=== PATIENT | male | born 1950 | race Caucasian/White ===

== ENCOUNTER 2019-08-31 08:38 | Outpatient (CLI) | payer MEDICARE, MEDICAID, SELFPAY ==
[2019-08-31 09:34] LABS: Alanine Aminotransferase 27 U/L (4-50); Albumin Level 3.9 g/dL (3.5-5.1); Alkaline Phosphatase 81 U/L (38-126); Aspartate Amino Transferase 27 U/L (17-59); Bilirubin,Total 0.3 mg/dL (0.2-1.3); Blood Urea Nitrogen 54 mg/dL (9-20); Carbon Dioxide 22 mmol/L (22-30); Chloride 108 mmol/L (98-107); Cholesterol 177 mg/dL (0-200); Estimated Glomerular Filt Rate 40; Glucose 144 mg/dL (75-110); HDL Direct 54 mg/dL; Potassium 4.4 mmol/L (3.4-5.0); Sodium 141 mmol/L (137-145); Triglycerides 128 mg/dL (<150)
[2019-08-31 09:46] LABS: LDL Cholesterol Direct 88 mg/dL
[2019-08-31 10:05] LABS: Prostate Specific Antigen 0.3 ng/mL (< OR = 4.0)
[2019-08-31 10:43] LABS: Hemoglobin A1C 8.3 % (<5.7)
[2019-08-31 10:45] LABS: Creatinine Urine 142.3 mg/dL
[2019-08-31 10:49] LABS: MALB Creatinine Ratio 11.3 mg/g (0-30); Microalbumin Urine Random 16.1 mg/L (0-16.7)
== END 2019-08-31 08:39 | disposition home or self-care (01) ==
PROVIDERS: PCP Nurse Practitioner Adult Health; Visit Provider Nurse Practitioner Adult Health
DX: E11.9 Type 2 diabetes mellitus without complications (principal); E78.5 Hyperlipidemia, unspecified; E03.9 Hypothyroidism, unspecified; R35.1 Nocturia
CPT/HCPCS: 36415; 80048; 80061; 80076; 82043; 83036; 84153; 84443

== ENCOUNTER 2019-12-02 08:42 | Emergency (ER) | payer MEDICARE, MEDICAID, SELFPAY ==
--- NOTE | ~2019-12-02 | XR_ITS ---
XR chest 1V portable DATE: 12/02/2019 09:40 INDICATION: Cough TECHNIQUE: Portable AP chest on 12/02/2019 at 0941 hours COMPARISON: 02/14/2019 2 view chest FINDINGS: There is chronic elevation of the right leaf of the diaphragm. No pulmonary infiltrate or consolidation, pleural effusion or pulmonary vascular congestion or pneumo thorax is evident. IMPRESSION: No active disease or significant change since 02/14/2019 Reviewed, dictated and finalized at location [facility].
--- NOTE | ~2019-12-02 | CT_ITS ---
EXAMINATION: CT brain wo con DATE: 12/02/2019 10:28 INDICATION: Confusion. TECHNIQUE: Computed tomography (CT) of the head was performed without intravenous contrast. The mA wa s adjusted according to patient size. Iterative reconstruction technique was employed. Exam dose: 60 5.33 mGy-cm total exam DLP. COMPARISON: 12/13/2018 CT head FINDINGS: No intracranial mass lesion or hemorrhage or cerebrovascular accident is evident. No midlin e shift or mass effect. Bilateral carotid siphon internal carotid artery calcifications. There is nonspecific diminished atte nuation of the cerebral white matter, likely due to chronic small vessel ischemic changes. Mild to moderate cerebral atrophy. No subdural or epidural hematoma. No fracture or bone destruction of the cranial vault. There is soft tissue thickening of the ethmoid air cells. There is minimal mucoperiosteal thickening of the maxillary and sphenoid sinuses. The left mastoid air cells are normally developed and aerated. Status post right mastoidectomy. IMPRESSION: Cerebral atherosclerosis and chronic small vessel ischemic changes of the cerebral white matter No acute intracranial finding . Reviewed, dictated and finalized at [facility]. Reviewed, dictated and finalized at location [facility].
[2019-12-02 08:51] VITALS: BP 133/49; PULSE 51; RESP 20; TEMP 36.2; O2SAT 97
[2019-12-02 09:05] LABS: Glucose Point of Care 253 (65-105)
--- NOTE | 2019-12-02 09:31 | ECG_ITS ---
Measurements Intervals [place] Rate: 45 P: 30 MA: 188 QRS: 26 QRSD: 109 T: 70 QT: 483 QTc: 421 Interpretive Statements SINUS BRADYCARDIA NONSPECIFIC ST & T-WAVE ABNORMALITY- DIFFUSE LEADS BASELINE ARTIFACT- I, II, III, AVR, AVL, AVF, V2 ABNORMAL ECG Electronically Signed On 12-02-2019 9:50:31 CDT by Timmy Salas D.O.
[2019-12-02 09:33] LABS: Basophils Absolute Auto 0.08 K/mm3 (0.00-0.10); Basophils Percent Auto 0.8 % (0.0-1.0); Eosinophils Absolute Auto 0.89 K/mm3 (0.02-0.50); Eosinophils Percent Auto 8.7 % (1.0-6.0); Hematocrit 37.3 % (37.0-46.0); Hemoglobin 11.9 g/dL (12.4-15.3); Immature Granulocyte Absolute 0.05 K/mm3 (0.00-0.00); Immature Granulocyte Percent A 0.5 % (0.0-0.0); Lymphocytes Absolute Auto 1.73 K/mm3 (1.10-4.50); Mean Corpuscular HGB Conc 31.9 g/dL (32.0-36.0); Mean Corpuscular Hemoglobin 29.8 pg (27.0-31.0); Mean Corpuscular Volume 93.5 fL (78.0-102.0); Mean Platelet Volume 11.5 fl (8.7-11.0); Monocytes Absolute Auto 0.74 K/mm3 (0.10-0.90); Monocytes Percent Auto 7.3 % (2.0-11.0); Neutrophils Absolute Auto 6.7 K/mm3 (1.7-7.2); Neutrophils Percent Auto 65.7 % (50.0-70.0); Platelet Count Result 181 K/mm3 (150-420); Red Blood Count 3.99 M/mm3 (4.70-6.10); Red Cell Distribution Width 14.6 % (11.6-14.4); White Blood Count 10.2 K/mm3 (4.8-10.8)
--- NOTE | 2019-12-02 09:34 | ED.GENADULT ---
HPI - General Adult General Chief complaint: Altered Mental Status Stated complaint: Ambulance History of Present Illness HPI narrative: About an hour after taking his usual dose of Lantus 60 this 68 y.o. felt his heart beating fast and felt like he was going to faint, seeing circles in his visual field and feeling week. His glucose was measured at 33; the pre-insulin glucose was 103. After being given candy the glucose was 69; 5 minutes later dropped to 33 per EMS. Given D10 en route to the hospital. For the last month or so he has been experiencing short episodes of chest pressure; he had none today Son states he has been dozing off frequently over the past 2 weeks. He takes [place] 4x/day. There has been no recent change in dose. Pt states he was told he doesn't need his CPAP. Related Data Home Medications Medication Instructions Recorded Confirmed gabapentin 100 mg PO TID 12/02/19 12/02/19 insulin glargine [Lantus U-100 60 unit SUBCUT DAILY 12/02/19 12/02/19 Insulin] levothyroxine 100 mcg PO DAILY 12/02/19 12/02/19 lisinopril 5 mg PO DAILY 12/02/19 12/02/19 metoprolol tartrate 25 mg PO BID 12/02/19 12/02/19 nitroglycerin 0.4 mg SUBLINGUAL PRN PRN 12/02/19 12/02/19 potassium chloride [Klor-Con 10] 10 meq PO DAILY 12/02/19 12/02/19 pravastatin 20 mg PO DAILY 12/02/19 12/02/19 tamsulosin 0.4 mg PO DAILY 12/02/19 12/02/19 umeclidinium-vilanterol [Anoro 1 inh INHALATION DAILY 12/02/19 12/02/19 Ellipta] Allergies Allergy/AdvReac Type Severity Reaction Status Date / Time No Known Allergies Allergy Verified 09/17/19 00:17 Review of Systems Constitutional: Constitutional: Denies chills and Denies fever(s) Eyes: Eyes: Reports no additional eye complaints ENT: Comments: No lightheadedness with standing. Cardiovascular: Cardiovascular: Reports no additional cardiovascular complaints Respiratory: Comments: States chronic SOB; not worse today. Gastrointestinal: Gastrointestinal: Denies abdominal pain, Denies nausea and Denies vomiting Comments: Has had 4 episodes of diarrhea daily for the last week or so. Genitourinary: Genitourinary: Denies dysuria Musculoskeletal: Comments: chronic low back pain attributed to nerve compression. Integumentary/Breasts: Skin/Breast: Denies rash Neurologic: Denies vertigo, Denies focal weakness, Denies numbness and Denies weakness Endocrine: Endocrine: Denies polydipsia and Denies polyuria Hematologic/Lymphatic: Hematologic/Lymphatic: Denies easy bleeding Allergic/Immunologic: Allergic/Immunologic: Denies tongue swelling [facility] Past Medical History Medical History (Updated 12/03/19 @ 02:19 by Trenton Quintanilla MD) Atrial fibrillation BPH (benign prostatic hyperplasia) CHF (congestive heart failure) COPD (chronic obstructive pulmonary disease) Diabetes HTN (hypertension) Hx of colonic polyps Surgical History Surgical History (Updated 12/02/19 @ 16:44 by Sandy Shaffer PA-C) History of major abdominal surgery Patient states this was an experimental surgery for an ulcer Hx of cholecystectomy Hx of colonoscopy with polypectomy Social History Social History (Updated 12/02/19 @ 16:45 by Sandy Shaffer PA-C) Social History: Patient does not smoke. he would like to be a full code. He is retired Smoking status: Never smoker Alcohol intake: never Substance use: never Gender identity (if verbalized by the patient): Male Spiritual care concerns: No Agree to blood products: Yes Exam Narrative: Exam Narrative: Eyes closed. Opens eyes when spoken to. Speech is very slightly slurred and slow. Const: General: no acute distress; No ill appearing Orientation/consciousness: patient oriented x3 HENMT: Head: normal to inspection Face and sinus: no sinus tenderness Mouth: No dry mucous membranes Eyes: Pupils: Equal, round and reactive pupils present Neck: Neck: no lymphadenopathy and no meningeal signs Chest: Chest palpation & ins
[2019-12-02 09:37] LABS: Glucose Point of Care 200 (65-105)
[2019-12-02 09:50] VITALS: PULSE 44
[2019-12-02 09:50] LABS: Alanine Aminotransferase 17 U/L (16-63); Albumin Level 2.8 g/dL (3.4-5.0); Alkaline Phosphatase 70 U/L (46-116); Anion Gap 12.5 mmol/L (7-16); Aspartate Amino Transferase 15 U/L (15-37); Bilirubin,Total 0.3 mg/dL (0.00-1.00); Blood Urea Nitrogen 39 mg/dL (7-18); Calcium 8.3 mg/dL (8.5-10.1); Carbon Dioxide 26 mmol/L (21-32); Chloride 106 mmol/L (98-108); Estimated CRCL calculation 46 ml/min; Estimated Glomerular Filt Rate 32; Glucose 190 mg/dL (70-99); Osmolality Calculated 306 mOsm/kg (285-295); Potassium 3.5 mmol/L (3.5-5.1); Sodium 141 mmol/L (136-145); Total Protein 5.9 g/dL (6.4-8.2)
[2019-12-02 09:51] LABS: Troponin I < 0.02 ng/mL (0.00-0.056)
[2019-12-02 10:02] LABS: Glucose Point of Care 160 (65-105)
[2019-12-02] MEDS: DEXTROSE 5%/0.9% SOD CHL 1,000 ML 250 ML IV CONT (10:13)
[2019-12-02 10:43] LABS: Glucose Point of Care 222 (65-105)
[2019-12-02 10:44] LABS: Magnesium 2.1 mg/dL (1.8-2.4); Thyroid Stimulating Hormone 3.38 uIU/mL (0.36-3.74)
--- NOTE | 2019-12-02 10:47 | PC.NURSE ---
1040 Pt. sleeping, arousable slightly to name, then falls asleep again. Noted BS recheck of 222, report given to Dr. Quintanilla. Awaiting lab results. Monitor continues to show SBrady c HR 44.
--- NOTE | 2019-12-02 11:08 | PC.NURSE ---
Pt. requests transfer to [place]. Call placed to mike Feliciano. and awaiting call back from hospitalist to speak c ANKITA.
--- NOTE | 2019-12-02 11:19 | PC.NURSE ---
Report to JEISON Santiago
[2019-12-02 11:24] VITALS: BP 129/68; PULSE 42; RESP 16; O2SAT 96
--- NOTE | 2019-12-02 11:34 | PC.NURSE ---
Dr. Quintanilla speaking with Dr. Alaniz at [facility]. Dr. Alaniz to accept pt. awaiting room assignment, pt and pts family aware.
[2019-12-02 11:43] LABS: Glucose Point of Care 228 (65-105)
--- NOTE | 2019-12-02 11:45 | PC.NURSE ---
ZACHERY from Dr. Quintanilla to lower rate of d5/ns to 200ml/hr.
--- NOTE | 2019-12-02 11:59 | PC.NURSE ---
Pt reports that he is unable to provide urine sample at this time.
--- NOTE | 2019-12-02 12:28 | PC.NURSE ---
mike Felicianohousehold refrigerator mechanic from [place] called with room assignment. pt to go to room 205B and report is able to be called. Pt and family updated. Face sheet faxed to sarah.
--- NOTE | 2019-12-02 12:40 | PC.NURSE ---
[facility] contacted for transport, no ambulance available.
--- NOTE | 2019-12-02 12:48 | PC.NURSE ---
[facility] contacted for carli.
[2019-12-02 12:54] VITALS: BP 124/71; PULSE 46; RESP 16; O2SAT 96
== END 2019-12-02 13:35 | disposition short-term general hospital (02) ==
PROVIDERS: Emergency Provider Family Medicine
DX: R00.1 Bradycardia, unspecified (principal); R41.82 Altered mental status, unspecified; E11.649 Type 2 diabetes mellitus with hypoglycemia without coma; Z79.4 Long term (current) use of insulin; I48.91 Unspecified atrial fibrillation; I50.9 Heart failure, unspecified; J44.9 Chronic obstructive pulmonary disease, unspecified; I10 Essential (primary) hypertension
CPT/HCPCS: 36415; 70450; 71045; 80053; 82948; 83735; 84443; 84484; 85025; 93005; 96360; 96361; 99283; 99285; J7042

== ENCOUNTER 2019-12-02 16:27 | Observation (INO) | payer MEDICARE, MEDICAID, SELFPAY ==
[2019-12-02 15:12] VITALS: BP 143/62; PULSE 52; RESP 14; TEMP 36.3; O2SAT 98
[2019-12-02 16:00] VITALS: PULSE 50
--- NOTE | 2019-12-02 16:18 | ADMGEN ---
This patient, Raymundo Urbina, was admitted to IMU Room 205-02 at 1425 on 142. Patient/family oriented to hospital policies and general routines including ID bracelet, bed and alarms, visiting hours, pain management, procedures, bathroom and other care routines, personal items, smoking policy, room service/diet, and visiting hours. Valuables list has been completed. Information on how to activate the Rapid Response Team has been discussed. Patient/Family are encouraged to report perceived risks to care and to ask questions if they do not understand what they are told or what they should do.
[2019-12-02 16:20] VITALS: BMI 47.5
--- NOTE | 2019-12-02 16:37 | PM.IMHP ---
H&P: HPI History of Present Illness Chief complaint: BRADYCARDIA,ACUTE MENTAL STATUS CHANGE Narrative: Raymundo Urbina is a 68 year old male who presented emergency room for multiple readings of low blood sugars. Patient states that he woke up this morning and his blood sugar was around 103. He took his 60 units of Lantus and laid down for a nap. He woke up and felt woozy, jittery, and had blurred vision. He rechecked his blood sugar and it was 33. He had some sugary drinks and a candy bar and could not get his blood sugar over 60 so he called the ambulance. Son, at bedside, says that he was confused but conscious the whole time. The patient stated that he felt like his heart was racing when his sugar was low but this improved once his sugar improved. He does mention that he has had chest pressure on and off for about 2 weeks and happens at rest or with activity. He has some occasional shortness of breath with this as well. He said he is not very active and sits and sleeps in a recliner most of the time. He does get up and go to the bathroom when needed. He has no history of falls, dizziness, or passing out. At this time he denies chest pain, shortness of breath, fevers, chills, nausea, vomiting, diarrhea, constipation or diaphoresis. He has no history of heart attacks that he knows of but does have a history of atrial fibrillation. He sees Dr. khan as his site coordinator. He said he has been told at 1 point that his heart rate was too low but does not really remember what happened with that. He usually takes his blood sugar routinely and runs anywhere from 110-200. He does not know his last A1c. He sees bret Crane as his primary care doctor. He has no further complaints today. Review of Systems Review of Systems: All systems reviewed & are unremarkable except as noted in HPI and below PMFSH Past Medical History Medical History (Updated 12/02/19 @ 16:46 by Sandy Shaffer PA-C) Atrial fibrillation BPH (benign prostatic hyperplasia) CHF (congestive heart failure) COPD (chronic obstructive pulmonary disease) Diabetes HTN (hypertension) Hx of colonic polyps Surgical History Surgical History (Updated 12/02/19 @ 16:44 by Sandy Shaffer PA-C) History of major abdominal surgery Patient states this was an experimental surgery for an ulcer Hx of cholecystectomy Hx of colonoscopy with polypectomy Social History Social History (Updated 12/02/19 @ 16:45 by Sandy Shaffer PA-C) Social History: Patient does not smoke. he would like to be a full code. He is retired Smoking status: Never smoker Alcohol intake: never Substance use: never Gender identity (if verbalized by the patient): Male Spiritual care concerns: No Agree to blood products: Yes Meds Home Medications and Allergies Home Medications Medication Instructions Recorded Confirmed Type furosemide 40 mg tablet 40 mg PO DAILY #90 tablet 08/20/19 12/02/19 Rx amiodarone 200 mg tablet 200 mg PO DAILY #90 tablet 09/04/19 12/02/19 Rx rivaroxaban 15 mg tablet 15 mg PO QPM #90 tablet 09/04/19 12/02/19 Rx albuterol sulfate 90 mcg/actuation 2 inhalation INHALATION Q4-6H PRN 09/17/19 12/02/19 Rx aerosol inhaler #18 gm tolnaftate [Antifungal 1 applic TOPICAL TID #108 gm 09/17/19 12/02/19 Rx (tolnaftate)] insulin lispro 100 unit/mL See Rx Instructions .ROUTE 11/28/19 12/02/19 Rx subcutaneous solution .COMPLEX #30 ml insulin syr/ndl U100 half shy 0.3 #300 each 11/28/19 12/02/19 Rx mL 31 gauge x 1/4 insulin syringe-needle U-100 1 mL #100 each 11/28/19 12/02/19 Rx 31 gauge x 15/64 gabapentin 100 mg PO TID 12/02/19 12/02/19 History insulin glargine [Lantus U-100 60 unit SUBCUT DAILY 12/02/19 12/02/19 History Insulin] levothyroxine 100 mcg PO DAILY 12/02/19 12/02/19 History lisinopril 5 mg PO DAILY 12/02/19 12/02/19 History metoprolol tartrate 25 mg PO BID 12/02/19 12/02/19 History nitroglycerin 0.4 mg SUBLINGUAL PRN PRN 12/02/19
[2019-12-02 17:15] LABS: Glucose Point of Care 272 (65-105)
--- NOTE | 2019-12-02 17:18 | PM.CNCAR ---
Assessment and Plan Assessment and plan (1) Morbidly obese: Code(s): E66.01 - Morbid (severe) obesity due to excess calories Status: Acute (2) Bradycardia: Code(s): R00.1 - Bradycardia, unspecified Status: Acute Assessment and Plan: Mild as low as 40 bpm, on Metoprolol and Amiodarone. Stop Metoprolol but continue Amiodarone. (3) HTN (hypertension): Code(s): I10 - Essential (primary) hypertension Status: Acute Assessment and Plan: Stable. Monitor. (4) COPD (chronic obstructive pulmonary disease): Code(s): J44.9 - Chronic obstructive pulmonary disease, unspecified Status: Acute (5) Atrial fibrillation: Code(s): I48.91 - Unspecified atrial fibrillation Status: Acute Assessment and Plan: Continue on Amiodarone 200 mg daily and Xarelto. (6) ANNITA (obstructive sleep apnea): Code(s): G47.33 - Obstructive sleep apnea (adult) (pediatric) Status: Acute (7) Dyslipidemia: Code(s): E78.5 - Hyperlipidemia, unspecified Status: Acute (8) CKD (chronic kidney disease) stage 3, GFR 30-59 ml/min: Code(s): N18.3 - Chronic kidney disease, stage 3 (moderate) Status: Acute (9) Chest pain: Code(s): R07.9 - Chest pain, unspecified Status: Acute Assessment and Plan: Mild, could be related to COPD. Troponin unremarkable. Negative nuclear stress test in December 2018. Obtain echo. History of Present Illness History of Present Illness Consult date/time: 12/02/19 17:18 Consult regarding: Bradycardia. Raymundo Urbina is a 68 year old male who has a history of PAF (He has had atrial fib for last 11 years and on Amiodarone. [id number] score is 3 which is moderate risk for cardioembolism off anticoagulation. ), hypertension, DM, dyslipidemia, CKD stage III, ANNITA on CPAP, morbid obesity who presented emergency room low blood sugars. Patient states that he woke up this morning and his blood sugar was around 103. He took his 60 units of Lantus and laid down for a nap. He woke up and had some dizziness and visual changes. He rechecked his blood sugar and it was 33. He had some sugary drinks and a candy bar and could not get his blood sugar over 60 so he called the ambulance. Son, at bedside, says that he was confused but conscious the whole time. The patient stated that he felt like his heart was racing when his sugar was low but this improved once his sugar improved. He does mention that he has had chest pressure on and off for about 2 weeks and happens at rest or with activity. He has some occasional shortness of breath with this as well. He said he is not very active and sits and sleeps in a recliner most of the time. He does get up and go to the bathroom when needed. He has no history of falls, dizziness, or passing out. At this time he denies chest pain, shortness of breath, fevers, chills, nausea, vomiting, diarrhea, constipation or diaphoresis. His last stress test was in December 2017 that was negative for ischemia. An echo in February 2018 shows only mild diastolic dysfunction. Reason For Visit: BRADYCARDIA,ACUTE MENTAL STATUS CHANGE Review of Systems Review of Systems: All systems reviewed & are unremarkable except as noted in HPI and below Constitutional: Constitutional: Reports fatigue Cardiovascular: Cardiovascular: Reports as per HPI and Reports chest pain Respiratory: Respiratory: Reports as per HPI and Reports dyspnea on exertion Gastrointestinal: Gastrointestinal: Reports as per HPI and Reports heartburn Neurologic: Reports as per HPI and Reports confusion [facility] Past Medical History Medical History (Updated 12/02/19 @ 17:27 by Timmy Salas DO) Atrial fibrillation BPH (benign prostatic hyperplasia) CHF (congestive heart failure) COPD (chronic obstructive pulmonary disease) Diabetes HTN (hypertension) Hx of colonic polyps Surgical History Surgical History (Updated 12/02/19 @ 16:44 by Sandy Frye
[2019-12-02] MEDS: LACTATED RINGERS 1,000 ML 100 ML IV CONT (17:47)
[2019-12-02] MEDS: GABAPENTIN 100 MG CAPSULE PO (17:47)
[2019-12-02] MEDS: INSULIN ASPART (*BKC) 100 UNITS/ML SUB-Q (17:47)
[2019-12-02] MEDS: RIVAROXABAN 15 MG TABLET PO (17:47)
[2019-12-02 20:00] VITALS: PULSE 54
[2019-12-02 20:10] VITALS: BP 153/63; PULSE 54; RESP 20; TEMP 36.8; O2SAT 98
[2019-12-02 22:00] VITALS: PULSE 55
[2019-12-02] MEDS: ACETAMINOPHEN 325 MG TABLET 650 MG PO (22:51)
[2019-12-03] VITALS (10 sets, daily range): BP systolic 136–175; BP diastolic 36–63; PULSE 57–95; RESP 16–20; TEMP 36.1–36.8; O2SAT 95–99
--- NOTE | 2019-12-03 | ECHO_ITS ---
Patient Info Name: Raymundo Urbina Age: 68 years : 1950 Gender: Male Ht: 70 in Wt: 331 lbs BSA: 2.80 m2 HR: 58 bpm BP: 138 / 40 mmHg Heart Rhythm: Bradycardia Technical Quality: Good Exam Date: 12/03/2019 1:14 PM Exam Location: [facility] Pulmonary Patient Status: Inpatient Admit Date: 12/02/2019 Staff Ordering Physician: Timmy Salas DO [place]: Lucas Oconnor RDCS Attending Provider: Sridevi Alaniz MD Referring Physician: Josue POLANCO; Exam Type: CA echo dop color flow w con Study Info Indications R00.1 - Bradycardia, unspecified Complete two-dimensional, color flow and Doppler transthoracic echocardiogram is performed with contrast to opacify the left ventrical and to improve the deliniation of the left ventrical endocarial boarders. Contrast/Agitated Saline Contrast/Ag. Saline: Definity Amount: 2.00 ml Administered By: Pamela Overton RN Existing IV Access: Yes History/Risk Factors Chest pain and bradycardia; CHF, COPD, DM, HTN, pAfib. Summary 1. Left ventricular chamber dimension is mildly enlarged. 2. Definity contrast administered improved wall motion interpretation. 3. Left ventricular systolic function is normal, estimated at 60-65%. 4. There is moderately increased left ventricular wall thickness. 5. The left ventricular diastolic function is abnormal. 6. E/e' 12 is mildly elevated. 7. Left atrial chamber dimension is severely enlarged. 8. There is mild aortic valve sclerosis. 9. There is trace tricuspid valve regurgitation. 10. Mild pulmonary hypertension, estimated pulmonary arterial systolic pressure is 47 mmHg. Left Ventricle E/e' 12 is mildly elevated. Definity contrast administered improved wall motion interpretation. Left ventricular chamber dimension is mildly enlarged. Left ventricular systolic function is normal, estimated at 60-65%. There is moderately increased left ventricular wall thickness. The left ventricular diastolic function is abnormal. Right Ventricle Right ventricular chamber dimension is normal. Right ventricular systolic function is normal. Left Atria Left atrial chamber dimension is severely enlarged. Right Atria Right atrial chamber dimension is normal. Aortic Valve The aortic valve is trileaflet. There is mild aortic valve sclerosis. There is no aortic valve stenosis. There is no aortic valve regurgitation. Pulmonic Valve There is no pulmonic regurgitation. Mitral Valve There is no mitral valve stenosis. There is no mitral valve regurgitation. Tricuspid Valve There is trace tricuspid valve regurgitation. Mild pulmonary hypertension, estimated pulmonary arterial systolic pressure is 47 mmHg. Pericardium/Pleural There is no pericardial effusion. Inferior Vena Cava Normal inferior vena cava with >50% collapse upon inspiration consistent with normal right atrial pressure, 5 mmHg. Aorta The aortic root size at the sinus of Valsalva is normal. Left Ventricular Outflow Tract Name Value Normal LVOT 2D LVOT Diameter 1.95 cm LVOT Doppler LVOT Peak Gra
[2019-12-03 00:12] LABS: Glucose Point of Care 311 (65-105)
--- NOTE | 2019-12-03 00:13 | PC.NURSE ---
pt blood sugar check and resulted 311. Per blood sugar management, no corrective insulin except at meal time.
[2019-12-03] MEDS: LACTATED RINGERS 1,000 ML 100 ML IV CONT ×2 (04:16→15:54)
[2019-12-03 05:11] LABS: Blood Urea Nitrogen 31 mg/dL (9-20); Calcium 8.2 mg/dL (8.4-10.2); Carbon Dioxide 26 mmol/L (22-30); Chloride 105 mmol/L (98-107); Estimated CRCL calculation 57 ml/min; Estimated Glomerular Filt Rate 43; Glucose 274 mg/dL (75-110); Potassium 4.2 mmol/L (3.4-5.0); Sodium 134 mmol/L (137-145)
[2019-12-03 05:38] LABS: Glucose Point of Care 231 (65-105)
[2019-12-03 05:46] LABS: Hemoglobin A1C 7.7 % (<5.7)
[2019-12-03] MEDS: LEVOTHYROXINE SODIUM 100 MCG TABLET PO (06:04)
--- NOTE | 2019-12-03 08:16 | PM.PNCARD ---
Progress Note: A&P Assessment and Plan (1) Bradycardia: Code(s): R00.1 - Bradycardia, unspecified Status: Acute Assessment and Plan: Improved off Metoprolol. (2) CKD (chronic kidney disease) stage 3, GFR 30-59 ml/min: Code(s): N18.3 - Chronic kidney disease, stage 3 (moderate) Status: Acute (3) Dyslipidemia: Code(s): E78.5 - Hyperlipidemia, unspecified Status: Acute (4) Morbidly obese: Code(s): E66.01 - Morbid (severe) obesity due to excess calories Status: Acute (5) HTN (hypertension): Code(s): I10 - Essential (primary) hypertension Status: Acute Assessment and Plan: Stable. (6) Atrial fibrillation: Code(s): I48.91 - Unspecified atrial fibrillation Status: Acute Assessment and Plan: On Amiodarone and Xarelto. (7) Chest pain: Code(s): R07.9 - Chest pain, unspecified Status: Acute Assessment and Plan: Intermittent, could be related to COPD. Negative nuclear stress test in December 2017. Obtain echo today. Subjective Date/time seen: 12/03/19 08:16 Sitting on side of bed, alert. Denies chest pain or sob. Exam Const: General: comfortable and no acute distress Neck: Neck: no JVD Resp: Auscultation: clear to auscultation bilaterally, no crackles, no rales, no rhonchi and no wheezes Cardio: Rate: regular rate Rhythm: regular rhythm Heart sounds: no murmurs GI: Inspection: non-distended Neuro: Speech: normal speech Extrem: Right lower extremity: no edema Left lower extremity: no edema Objective Data Vital Signs Vital Signs: Vital Signs - 24 hr 12/02/19 15:12 12/02/19 16:00 12/02/19 20:00 Temperature 97.4 F L Pulse Rate 52 L 50 L 54 L Respiratory Rate 14 Blood Pressure 143/62 H Pulse Oximetry 98 12/02/19 20:10 12/02/19 22:00 12/03/19 00:00 Temperature 98.2 F Pulse Rate 54 L 55 L 63 Respiratory Rate 20 Blood Pressure 153/63 H Pulse Oximetry 98 12/03/19 00:10 12/03/19 02:00 12/03/19 04:00 Temperature 98.1 F Pulse Rate 63 82 59 L Respiratory Rate 16 Blood Pressure 136/36 L Pulse Oximetry 95 12/03/19 04:16 12/03/19 06:00 Temperature 98.2 F Pulse Rate 59 L 58 L Respiratory Rate 18 Blood Pressure 147/43 H Pulse Oximetry 97 Intake/Output Intake/Output: Intake & Output 11/30/19 12/01/19 12/02/19 12/03/19 23:59 23:59 23:59 23:59 Intake Total 340 1685 Output Total 900 650 Balance -560 1035 Meds/Results Medications: Active Medications Generic Name Dose Route Start Last Admin Trade Name Freq PRN Reason Stop Dose Admin Acetaminophen 650 mg 12/02/19 16:31 12/02/19 22:51 Tylenol Tablet PO 650 mg Q4H PRN Administration Pain or Fever Albuterol 2 puff 12/02/19 16:54 Proventil Hfa INHALATION Q4-6H PRN shortness of breath or wheezing Amiodarone HCl 200 mg 12/03/19 08:00 Pacerone PO DAILY@0800 [facility] Budesonide/Formoterol Fumarate 2 puff 12/02/19 20:00 12/02/19 22:01 Symbicort 160-4.5 Mcg (*Sp) Inhaler INHALATION 2 puff Q12HRT [place] Administration Dextrose 12.5 gm 12/02/19 16:36 Dextrose 50% Syringe IV PUSH PRN PRN Hypoglycemia Protocol Furosemide 40 mg 12/03/19 09:00 Lasix Tablet PO DAILY [place] Gabapentin 100 mg 12/02/19 17:00 12/02/19 17:47 Neurontin PO 100 mg TID [place] Administration Glucagon 1 mg 12/02/19 16:36 Glucagon For Inj IM PRN PRN Hypoglycemia Protocol Glucose 15 gm 12/02/19 16:36 Glutose 15 PO PRN PRN Hypoglycemia Protocol Lactated Ringer's 1,000 mls @ 100 mls/hr 12/02/19 16:35 12/03/19 06:07 Lr - Lactated Ringers Iv IV CONT 100 mls/hr .Q10H [place] Infusion Dextrose 1,000 mls @ 100 mls/hr 12/02/19 16:36 Dextrose 5% 1,000 Ml IVPB PRN PRN Hypoglycemia Protocol Insulin Aspart 2 - 5 units 12/02/19 17:00 12/02/19 17:47 Novolog SUB-Q
[2019-12-03 08:57] LABS: Glucose Point of Care 242 (65-105)
[2019-12-03] MEDS: INSULIN ASPART (*BKC) 100 UNITS/ML SUB-Q ×3 (09:49→18:22)
[2019-12-03] MEDS: AMIODARONE HCL 200 MG TABLET PO (09:53)
[2019-12-03] MEDS: PRAVASTATIN SODIUM 20 MG TABLET PO (09:53)
[2019-12-03] MEDS: POTASSIUM CHLORIDE 10 MEQ TABLET.ER PO (09:53)
[2019-12-03] MEDS: lisinopriL 5 MG TABLET PO (09:53)
[2019-12-03] MEDS: TAMSULOSIN HCL 0.4 MG CAPSULE PO (09:54)
[2019-12-03] MEDS: GABAPENTIN 100 MG CAPSULE PO ×3 (09:54→18:22)
[2019-12-03] MEDS: FUROSEMIDE 40 MG TABLET PO (09:54)
[2019-12-03 12:29] LABS: Glucose Point of Care 272 (65-105)
[2019-12-03] MEDS: PERFLUTREN LIPID MICROSPHERES 1.5 ML VIAL DILUTED TO 10 ML TOTAL VOLUME IV PUSH (13:39)
[2019-12-03] MEDS: ACETAMINOPHEN 325 MG TABLET 650 MG PO (15:54)
--- NOTE | 2019-12-03 17:50 | PM.DS ---
DS: Diagnosis Admitting Diagnosis Admitting Diagnosis: Bradycardia, unspecified Discharge Diagnosis (1) Bradycardia: Code(s): R00.1 - Bradycardia, unspecified Status: Acute Assessment and Plan: -----patient was transferred from [facility] due to asymptomatic bradycardia. At this time we will hold the metoprolol and the amiodarone and I will consult Dr. 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 ACS does not seem to be likely at this time. He does mention that he has had chest pressure on and off for the last few weeks. His initial troponin was negative and since he is not having active chest pain now, or in the near past, no need to trend these. His heart was racing while his blood sugar was low which can be a normal side effect of hypoglycemia. Will leave it up to Dr. khan if he wants to add an echo for tomorrow. Will monitor for chest pain and continue telemetry. Patient has no history of dizziness, passing out, or falling to suspect he has symptoms of this bradycardia. (2) Atrial fibrillation: Code(s): I48.91 - Unspecified atrial fibrillation Status: Acute Assessment and Plan: -----on amiodarone and metoprolol and sees Dr. khan. See above. (3) Diabetes: Code(s): E11.9 - Type 2 diabetes mellitus without complications Status: Acute Assessment and Plan: -----last glucose 228. Will continue to check glucose every 6 hours since he did take Lantus. Will do small sliding scale before meals. No need for dextrose infusion at this time since he has been ranging from 150-220. If he starts to have low readings, may initiate dextrose drip. (4) Hypoglycemic event in diabetes: Code(s): E11.649 - Type 2 diabetes mellitus with hypoglycemia without coma Status: Acute Assessment and Plan: -----see above. Will check A1c tomorrow and adjust home meds as needed. Patient does have chronic kidney disease and may need a lower amount of insulin. (5) COPD (chronic obstructive pulmonary disease): Code(s): J44.9 - Chronic obstructive pulmonary disease, unspecified Status: Acute Assessment and Plan: -----no active issues. Monitor for shortness of breath (6) HTN (hypertension): Code(s): I10 - Essential (primary) hypertension Status: Acute Assessment and Plan: -----blood pressure 143/62. Monitor (7) Hypothyroidism: Code(s): E03.9 - Hypothyroidism, unspecified Status: Acute Assessment and Plan: -----TSH within normal limits. Continue levothyroxine. (8) Morbidly obese: Code(s): E66.01 - Morbid (severe) obesity due to excess calories Status: Acute Assessment and Plan: -----patient would benefit from lifestyle changes and weight loss. (9) Acute kidney injury superimposed on chronic kidney disease: Code(s): N17.9 - Acute kidney failure, unspecified; N18.9 - Chronic kidney disease, unspecified Status: Acute Assessment and Plan: -----creatinine typically is around 1.7. Today he is 2.0. Will start fluids overnight and reassess tomorrow. DS: Summary Hospital Course Reason for hospitalization: Raymundo Urbina is a 68 year old male who presented emergency room for multiple readings of low blood sugars. Patient states that he woke up this morning and his blood sugar was around 103. He took his 60 units of Lantus and laid down for a nap. He woke up and felt woozy, jittery, and had blurred vision. He rechecked his blood sugar and it was 33. He had some sugary drinks and a candy bar and could not get his blood sugar over 60 so he called the ambulance. Son, at bedside, says that he was confused but conscious the whole time. The patient stated that he felt like his heart was racing when his sugar was low but this improved once his sugar improved. He does mention that he has had chest pressure on and off for about 2 week
[2019-12-03] MEDS: RIVAROXABAN 15 MG TABLET PO (18:22)
[2019-12-03 18:37] LABS: Glucose Point of Care 251 (65-105)
== END 2019-12-03 18:45 | disposition home or self-care (01) ==
PROVIDERS: Physician Assistant; Admitting Provider Family Medicine; Visit Provider Family Medicine
DX: R00.1 Bradycardia, unspecified (principal); I48.91 Unspecified atrial fibrillation; R07.89 Other chest pain; E11.649 Type 2 diabetes mellitus with hypoglycemia without coma; E11.22 Type 2 diabetes mellitus with diabetic chronic kidney disease; I13.0 Hypertensive heart and chronic kidney disease with heart failure and stage 1 through stage 4 chronic kidney disease, or unspecified chronic kidney disease; N18.3 Chronic kidney disease, stage 3 (moderate); I50.9 Heart failure, unspecified; N17.9 Acute kidney failure, unspecified; J44.9 Chronic obstructive pulmonary disease, unspecified; E78.5 Hyperlipidemia, unspecified; E03.9 Hypothyroidism, unspecified; G47.33 Obstructive sleep apnea (adult) (pediatric); E66.01 Morbid (severe) obesity due to excess calories; Z68.42 Body mass index [BMI] 45.0-49.9, adult; Z79.4 Long term (current) use of insulin; Z79.899 Other long term (current) drug therapy; Z99.89 Dependence on other enabling machines and devices
CPT/HCPCS: 36415; 80048; 83036; 94640; 96361; 96374; A9270; C8929; G0378; J1815; J7120; Q9957

== ENCOUNTER 2020-06-12 00:11 | Emergency (ER) | payer MEDICARE, MEDICAID, SELFPAY ==
--- NOTE | ~2020-06-12 | CT_ITS ---
EXAMINATION:CT chest wo con DATE: 06/12/2020 01:48 INDICATION: Chest pain. TECHNIQUE: Computed tomography (CT) of the chest was performed without intravenous contrast. Automate d exposure control and iterative reconstruction technique were employed. The dose-length product (DLP ) was 909.58 mGy-cm. COMPARISON: Chest CT 01/24/2016 FINDINGS: There is chronic marked elevation of right hemidiaphragm. There is mild atelectasis bilater ally. Again seen is a 4 mm nodule in right upper lobe, consistent with granulomatous disease. Calcifi ed left lung nodules and calcified left hilar lymph nodes are consistent with old granulomatous disea se. No pleural effusion. The heart size is normal. There are coronary artery calcifications. No peric ardial effusion. Calcifications in the liver and spleen are consistent with old granulomatous disease . There are changes of cholecystectomy. Partially visualized is a 4.7 cm mass in right adrenal gland containing macroscopic fat, consistent with a myelolipoma. There is mild thoracic spondylosis. Thorac ic levoscoliosis is noted. IMPRESSION: 1. Chronic marked elevation of right hemidiaphragm. Reviewed, dictated and finalized at location A.
[2020-06-12 00:20] VITALS: BP 178/71; PULSE 94; RESP 16; O2SAT 93
--- NOTE | 2020-06-12 01:05 | ED.BACK ---
HPI - Back Pain/Injury General Chief Complaint: Back Pain/Injury Stated Complaint: Back pain Time Seen by Provider: 06/12/20 00:42 History of Present Illness HPI Narrative: Pt c/o right mid back pain, sudden onset, 9/10, dull ache, worse with movement and palpation, started tonight. Denies cp, sob, cough, abd pain, n/v, or fever. Pt admits to h/o chronic back pain and takes hydrocodone for it. Related Data Home Medications Medication Instructions Recorded Confirmed Anoro Ellipta 1 inh INHALATION DAILY 12/02/19 04/21/20 albuterol sulfate [Ventolin HFA] 2 puff INHALATION QID PRN 12/02/19 04/21/20 amiodarone 200 mg PO DAILY 12/02/19 04/21/20 furosemide 40 mg PO DAILY 12/02/19 04/21/20 gabapentin 100 mg PO TID 12/02/19 04/21/20 gabapentin 100 mg PO TID 12/02/19 04/21/20 insulin glargine [Lantus U-100 60 unit SUBCUT HS 12/02/19 04/21/20 Insulin] insulin lispro 1 sliding scale dose SUBCUT 12/02/19 04/21/20 USEASDIRECTD levothyroxine 100 mcg PO DAILY 12/02/19 04/21/20 lisinopril 5 mg PO DAILY 12/02/19 04/21/20 lisinopril 5 mg PO DAILY 12/02/19 04/21/20 metoprolol tartrate 25 mg PO BID 12/02/19 04/21/20 nitroglycerin 0.4 mg SUBLINGUAL PRN PRN 12/02/19 04/21/20 nitroglycerin 0.4 mg SUBLINGUAL Q5MIN PRN MDD 3 12/02/19 04/21/20 potassium chloride 10 meq PO DAILY 12/02/19 04/21/20 potassium chloride [Klor-Con 10] 10 meq PO DAILY 12/02/19 04/21/20 pravastatin 20 mg PO DAILY 12/02/19 04/21/20 rivaroxaban [Xarelto] 15 mg PO QPM 12/02/19 04/21/20 tamsulosin 0.4 mg PO DAILY 12/02/19 04/21/20 tamsulosin 0.4 mg PO DAILY 12/02/19 04/21/20 tolnaftate 1 applic TOPICAL TID 12/02/19 04/21/20 umeclidinium-vilanterol [Anoro 1 inh INHALATION DAILY 12/02/19 04/21/20 Ellipta] hydrocodone-acetaminophen 1 tablet PO QID PRN 12/03/19 04/21/20 levothyroxine 100 mcg tablet 100 mcg PO QAM tablet 01/04/20 04/21/20 pravastatin 20 mg tablet 20 mg PO QPM tablet 01/04/20 04/21/20 Allergies Allergy/AdvReac Type Severity Reaction Status Date / Time No Known Allergies Allergy Verified 04/21/20 14:30 Review of Systems Review of Systems: All systems reviewed & are unremarkable except as noted in HPI and below Constitutional: Constitutional: Denies body ache(s), Denies chills, Denies excessive sweating, Denies fatigue, Denies fever(s), Denies headache(s), Denies lethargy, Denies malaise, Denies weakness and Denies weight loss Eyes: Eyes: Denies blurry vision, Denies change in vision and Denies loss of vision ENT: Denies dizziness, Denies ear discharge, Denies headache(s), Denies lip swelling, Denies epistaxis, Denies nasal congestion, Denies neck pain, Denies throat swelling and Denies tongue swelling Cardiovascular: Cardiovascular: Denies chest pain, Denies chest pain at rest, Denies chest pain with activity, Denies diaphoresis, Denies rapid heart rate, Denies edema, Denies irregular heart rhythm, Denies lightheadedness, Denies palpitations, Denies dyspnea and Denies dyspnea on exertion Respiratory: Respiratory: Denies chest congestion, Denies cough, Denies hemoptysis, Denies dyspnea and Denies dyspnea on exertion Gastrointestinal: Gastrointestinal: Denies abdominal pain, Denies melena, Denies hematochezia, Denies diarrhea, Denies nausea, Denies vomiting and Denies hematemesis Musculoskeletal: Musculoskeletal: Denies abnormal gait, Denies deformity, Denies joint swelling, Denies limited range of motion, Denies neck pain and Denies numbness Neurologic: Denies Abnormal speech present, Denies abnormal gait, Denies confusion, Denies dizziness, Denies headache(s), Denies focal weakness, Denies loss of vision, Denies numbness, Denies Other visual disturbances, Denies Sensory deficit (Neuro) and Denies weakness Psychiatric: Psychiatric: Denies confusion, Denies depression, Denies auditory hallucinations, Denies homicidal ideation and Denies suicidal ideation Endocrine: Endocrine: Denies cold intolerance, Denies excessive sweating, Denies fatigue, Denies heat intolerance
[2020-06-12] MEDS: HYDROmorphone HCL INJ (*CRX) 1 MG/ML SYR 0.5 MG IV PUSH (01:29)
[2020-06-12] MEDS: diazePAM INJ (*CRX) 10 MG/2 ML SYRINGE 5 MG IV PUSH (01:29)
[2020-06-12 01:35] LABS: Basophils Absolute Auto 0.1 K/mm3 (0.0-0.1); Basophils Percent Auto 0.6 % (0.2-1.2); Eosinophils Absolute Auto 0.3 K/mm3 (0-0.3); Eosinophils Percent Auto 2.4 % (0-4.4); Hematocrit 48.4 % (42.0-52.0); Hemoglobin 15.7 g/dL (14.0-18.0); Immature Granulocyte Absolute 0.05 K/mm3 (0.00-0.031); Immature Granulocyte Percent A 0.4 % (0-0.5); Lymphocytes Absolute Auto 1.75 K/mm3 (0.9-3.2); Lymphocytes Percent Auto 14.8 % (18.3-44.2); Mean Corpuscular HGB Conc 32.4 g/dl (32-36); Mean Corpuscular Hemoglobin 29.5 pg (26-34); Mean Platelet Volume 12.3 fl (7.4-10.4); Monocytes Percent Auto 8.2 % (2.6-8.5); Neutrophils Absolute Auto 8.7 K/mm3 (1.3-6.7); Neutrophils Percent Auto 73.6 % (45.5-73.1); Platelet Count Result 230 k/mm3 (150-375); Red Blood Count 5.32 M/mm3 (4.6-6.20); Red Cell Distribution Width 15.1 % (11.5-14.5); White Blood Count 11.9 K/mm3 (4.5-10.0)
[2020-06-12 01:52] VITALS: BP 192/66; PULSE 78; RESP 16; O2SAT 96
[2020-06-12 01:57] LABS: Alanine Aminotransferase 30 U/L (4-50); Anion Gap 7 mmol/L (8-16); Aspartate Amino Transferase 37 U/L (17-59); Bilirubin,Total 0.6 mg/dL (0.2-1.3); Blood Urea Nitrogen 45 mg/dL (9-20); Calcium 9.4 mg/dL (8.4-10.2); Carbon Dioxide 28 mmol/L (22-30); Chloride 103 mmol/L (98-107); Estimated CRCL calculation 48 ml/min; Estimated Glomerular Filt Rate 35; Glucose 197 mg/dL (75-110); Potassium 4.4 mmol/L (3.4-5.0); Sodium 138 mmol/L (137-145)
[2020-06-12 01:58] LABS: Alkaline Phosphatase 98 U/L (38-126)
[2020-06-12 02:46] VITALS: BP 178/61; PULSE 72; RESP 18; O2SAT 96
[2020-06-12 04:04] VITALS: BP 178/72; PULSE 78; RESP 18; O2SAT 96
== END 2020-06-12 04:06 | disposition home or self-care (01) ==
PROVIDERS: Emergency Provider Emergency Medicine; PCP Nurse Practitioner Adult Health
DX: M54.6 Pain in thoracic spine (principal); Z79.01 Long term (current) use of anticoagulants
CPT/HCPCS: 36415; 71250; 80053; 85025; 96374; 96375; 99284; J1170; J3360

== ENCOUNTER 2020-08-12 07:34 | Emergency (ER) | payer MEDICARE, MEDICAID, SELFPAY ==
[2020-08-12] VITALS (12 sets, daily range): BP systolic 160–208; BP diastolic 83–149; PULSE 67–92; RESP 15–22; TEMP 37.8; O2SAT 92–96
--- NOTE | ~2020-08-12 | XR_ITS ---
XR chest 1V portable 08/12/2020 08:26 Indication: Chest pain Procedure: AP view of the chest Comparison: Comparison to multiple prior studies sequentially, with oldest reviewed study dated 12/13. Findings: Cardiomegaly. Patchy bilateral infiltrates of the mid and lower lungs. No significant pleur al effusion or pneumothorax. No acute osseous abnormality. Impression: 1: Patchy ill-defined infiltrates of the mid and lower lung zones, suspicious for pneumonia. Reviewed, dictated and finalized at location A. [facility] [employer] Impression: 1: Patchy ill-defined infiltrates of the mid and lower lung zones, suspicious f or pneumonia.
--- NOTE | 2020-08-12 07:59 | ECG_ITS ---
Measurements Intervals [place] Rate: 88 P: IA: 0 QRS: -18 QRSD: 107 T: 91 QT: 345 QTc: 419 Interpretive Statements SINUS RHYTHM DELAYED PRECORDIAL R/S TRANSITION ST-T WAVE ABNORMALITY IN HIGH LATERAL LEADS- CONSIDER ISCHEMIA BASELINE ARTIFACT- I, II, III, AVR, AVL, AVF, V1-V2 ABNORMAL ECG Electronically Signed On 08-12-2020 9:42:00 [employer] by Timmy Salas D.O.
[2020-08-12 08:08] LABS: Basophils Percent Auto 0.3 % (0.2-1.2); Eosinophils Percent Auto 0.4 % (0-4.4); Hematocrit 48.1 % (42.0-52.0); Hemoglobin 15.5 g/dL (14.0-18.0); Immature Granulocyte Absolute 0.04 K/mm3 (0.00-0.031); Immature Granulocyte Percent A 0.5 % (0-0.5); Lymphocytes Absolute Auto 1.51 K/mm3 (0.9-3.2); Lymphocytes Percent Auto 19.4 % (18.3-44.2); Mean Corpuscular HGB Conc 32.2 g/dl (32-36); Mean Corpuscular Volume 86.8 fl (80-100); Monocytes Absolute Auto 0.7 K/mm3 (0.1-0.6); Monocytes Percent Auto 9.2 % (2.6-8.5); Neutrophils Absolute Auto 5.5 K/mm3 (1.3-6.7); Neutrophils Percent Auto 70.2 % (45.5-73.1); Platelet Count Result 151 k/mm3 (150-375); Red Blood Count 5.54 M/mm3 (4.6-6.20); Red Cell Distribution Width 16.1 % (11.5-14.5); White Blood Count 7.8 K/mm3 (4.5-10.0)
--- NOTE | 2020-08-12 08:38 | PC.NURSE ---
Patient refused to give urine sample or allow this RN to straight cath to obtain urine sample. EDP notified of delay in UA results.
[2020-08-12 08:39] LABS: Alanine Aminotransferase 24 U/L (4-50); Albumin Level 3.6 g/dL (3.5-5.1); Alkaline Phosphatase 100 U/L (38-126); Anion Gap 12 mmol/L (8-16); Aspartate Amino Transferase 42 U/L (17-59); Bilirubin,Total 0.6 mg/dL (0.2-1.3); Blood Urea Nitrogen 28 mg/dL (9-20); Calcium 8.4 mg/dL (8.4-10.2); Carbon Dioxide 21 mmol/L (22-30); Chloride 105 mmol/L (98-107); Estimated CRCL calculation 57 ml/min; Estimated Glomerular Filt Rate 40; Glucose 200 mg/dL (75-110); Potassium 4.9 mmol/L (3.4-5.0); Sodium 138 mmol/L (137-145)
[2020-08-12 09:02] LABS: Add Urine Microscopic? YES; Appearance Urine Cloudy (Clear); Bacteria Urine 3+ /hpf; Bilirubin Urine Negative (Negative); Color Urine Yellow (Yellow); Glucose Urine UA Negative (Negative); Ketones Urine Trace mg/dL (Negative); Leukocyte Esterase Ur 3+ LEU/UL (Negative); Mucus Urine Rare /lpf; Nitrate Urine Positive (Negative); Protein Urine 1+ mg/dL (Negative); Specific Grav Ur 1.019 (1.001-1.035); Squamous Epithelial Cell Urine Few /hpf (Few); Urobilinogen Urine Negative mg/dL (<2.0); WBC Urine >75 /hpf
[2020-08-12 09:08] LABS: Blood Urine Negative (Negative)
--- NOTE | 2020-08-12 12:12 | ED.FEVER ---
HPI - Fever General Chief Complaint: Fever Stated Complaint: cough, nausea Time Seen by Provider: 08/12/20 07:43 Related Data Home Medications Medication Instructions Recorded Confirmed Anoro Ellipta 1 inh INHALATION DAILY 12/02/19 04/21/20 albuterol sulfate [Ventolin HFA] 2 puff INHALATION QID PRN 12/02/19 04/21/20 amiodarone 200 mg PO DAILY 12/02/19 04/21/20 furosemide 40 mg PO DAILY 12/02/19 04/21/20 gabapentin 100 mg PO TID 12/02/19 04/21/20 gabapentin 100 mg PO TID 12/02/19 04/21/20 insulin glargine [Lantus U-100 60 unit SUBCUT HS 12/02/19 04/21/20 Insulin] insulin lispro 1 sliding scale dose SUBCUT 12/02/19 04/21/20 USEASDIRECTD levothyroxine 100 mcg PO DAILY 12/02/19 04/21/20 lisinopril 5 mg PO DAILY 12/02/19 04/21/20 lisinopril 5 mg PO DAILY 12/02/19 04/21/20 metoprolol tartrate 25 mg PO BID 12/02/19 04/21/20 nitroglycerin 0.4 mg SUBLINGUAL PRN PRN 12/02/19 04/21/20 potassium chloride [Klor-Con 10] 10 meq PO DAILY 12/02/19 04/21/20 pravastatin 20 mg PO DAILY 12/02/19 04/21/20 tamsulosin 0.4 mg PO DAILY 12/02/19 04/21/20 tolnaftate 1 applic TOPICAL TID 12/02/19 04/21/20 umeclidinium-vilanterol [Anoro 1 inh INHALATION DAILY 12/02/19 04/21/20 Ellipta] hydrocodone-acetaminophen 1 tablet PO QID PRN 12/03/19 04/21/20 levothyroxine 100 mcg tablet 100 mcg PO QAM tablet 01/04/20 04/21/20 Allergies Allergy/AdvReac Type Severity Reaction Status Date / Time No Known Allergies Allergy Verified 08/12/20 07:56 [facility] Past Medical History Medical History Atrial fibrillation BPH (benign prostatic hyperplasia) CHF (congestive heart failure) COPD (chronic obstructive pulmonary disease) Diabetes HTN (hypertension) Hx of colonic polyps Surgical History Surgical History History of major abdominal surgery Patient states this was an experimental surgery for an ulcer Hx of cholecystectomy Hx of colonoscopy with polypectomy Family History Family History Mother Hypertension Colon polyp Family history of coronary artery disease Father Family history of lung cancer Family history of malignant neoplasm of brain Family history of malignant neoplasm Other Diabetes mellitus Family history of arthritis Family history of cardiovascular disease Family history of congestive heart failure Family history of seizure disorder Social History Social History Social History: Patient does not smoke. he would like to be a full code. He is retired Smoking status: Never smoker Alcohol intake: never Substance use: never Gender identity (if verbalized by the patient): Male Spiritual care concerns: No Agree to blood products: Yes Course Vital Signs Vital signs: Vital Signs Temperature 37.8 C H 08/12/20 07:51 Pulse Rate 87 08/12/20 07:51 Respiratory Rate 19 08/12/20 07:51 Blood Pressure 161/92 H 08/12/20 07:51 Pulse Oximetry 95 08/12/20 07:51 Temperature 37.8 C H 08/12/20 07:51 Pulse Rate 67 08/12/20 12:17 Respiratory Rate 15 08/12/20 12:17 Blood Pressure 189/89 H 08/12/20 12:17 Pulse Oximetry 94 08/12/20 12:17 MDM - Fever Lab Data Result diagrams: 08/12/20 07:59 08/12/20 07:59 Labs: Lab Results 08/12/20 08/12/20 08/12/20 Range/Units 07:59 07:59 08:48 WBC 7.8 (4.5-10.0) K/mm3 RBC 5.54 (4.6-6.20) M/mm3 Hgb 15.5 (14.0-18.0) g/dL Hct 48.1 (42.0-52.0) % MCV 86.8 (80-100) fl MCH 28.0 (26-34) pg MCHC 32.2 (32-36) g/dl RDW 16.1 H (11.5-14.5) % Plt Count 151 (150-375) k/mm3 MPV 12.0 H (7.4-10.4) fl Immature Gran % (Auto) 0.5 (0-0.5) % Neut % (Auto) 70.2 (45.5-73.1) % Lymph % (Auto) 19.4 (18.3-44.2) % [place] % (Auto) 9.2 H (2.6-8
--- NOTE | 2020-08-12 12:20 | ED.FEVER ---
HPI - Fever General Chief Complaint: Fever Stated Complaint: cough, nausea Time Seen by Provider: 08/12/20 07:43 Source: patient Mode of arrival: EMS Limitations: no limitations History of Present Illness HPI Narrative: 69-year-old with a history of hypertension A. fib diabetes here with complaints of not feeling well, fever , mild shortness of breath for past few days. Patient states that his son is under investigation for Covid. He denies any cough, nausea or vomiting. He states that he just feels weak all over. MD elicited complaint: weakness Pertinent past history: diabetes Context: sick contacts (Son is under investigation for Covid) Exacerbating factors: nothing Relieving factors: nothing Associated symptoms: shortness of breath Related Data Home Medications Medication Instructions Recorded Confirmed Anoro Ellipta 1 inh INHALATION DAILY 12/02/19 04/21/20 albuterol sulfate [Ventolin HFA] 2 puff INHALATION QID PRN 12/02/19 04/21/20 amiodarone 200 mg PO DAILY 12/02/19 04/21/20 furosemide 40 mg PO DAILY 12/02/19 04/21/20 gabapentin 100 mg PO TID 12/02/19 04/21/20 gabapentin 100 mg PO TID 12/02/19 04/21/20 insulin glargine [Lantus U-100 60 unit SUBCUT HS 12/02/19 04/21/20 Insulin] insulin lispro 1 sliding scale dose SUBCUT 12/02/19 04/21/20 USEASDIRECTD levothyroxine 100 mcg PO DAILY 12/02/19 04/21/20 lisinopril 5 mg PO DAILY 12/02/19 04/21/20 lisinopril 5 mg PO DAILY 12/02/19 04/21/20 metoprolol tartrate 25 mg PO BID 12/02/19 04/21/20 nitroglycerin 0.4 mg SUBLINGUAL PRN PRN 12/02/19 04/21/20 potassium chloride [Klor-Con 10] 10 meq PO DAILY 12/02/19 04/21/20 pravastatin 20 mg PO DAILY 12/02/19 04/21/20 tamsulosin 0.4 mg PO DAILY 12/02/19 04/21/20 tolnaftate 1 applic TOPICAL TID 12/02/19 04/21/20 umeclidinium-vilanterol [Anoro 1 inh INHALATION DAILY 12/02/19 04/21/20 Ellipta] hydrocodone-acetaminophen 1 tablet PO QID PRN 12/03/19 04/21/20 levothyroxine 100 mcg tablet 100 mcg PO QAM tablet 01/04/20 04/21/20 Allergies Allergy/AdvReac Type Severity Reaction Status Date / Time No Known Allergies Allergy Verified 08/12/20 07:56 Review of Systems Review of Systems: All systems reviewed & are unremarkable except as noted in HPI and below Constitutional: Constitutional: Reports no additional constitutional complaints Eyes: Eyes: Reports no additional eye complaints ENT: Reports system reviewed and no additional complaints, except as documented Cardiovascular: Cardiovascular: Reports as per HPI Gastrointestinal: Gastrointestinal: Reports as per HPI Musculoskeletal: Musculoskeletal: Reports no additional musculoskeletal complaints Neurologic: Reports system reviewed and no additional complaints, except as documented PMF Past Medical History Medical History Atrial fibrillation BPH (benign prostatic hyperplasia) CHF (congestive heart failure) COPD (chronic obstructive pulmonary disease) Diabetes HTN (hypertension) Hx of colonic polyps Surgical History Surgical History History of major abdominal surgery Patient states this was an experimental surgery for an ulcer Hx of cholecystectomy Hx of colonoscopy with polypectomy Family History Family History Mother Hypertension Colon polyp Family history of coronary artery disease Father Family history of lung cancer Family history of malignant neoplasm of brain Family history of malignant neoplasm Other Diabetes mellitus Family history of arthritis Family history of cardiovascular disease Family history of congestive heart failure Family history of seizure disorder Social History Social History Social History: Patient does not smoke. he would like to be a full code. He is retired Smoking status: Nev
[2020-08-13 02:00] LABS: SARS-CoV-2 RNA PCR Positive
== END 2020-08-12 12:33 | disposition home or self-care (01) ==
PROVIDERS: Emergency Provider Family Medicine; PCP Nurse Practitioner Adult Health
DX: U07.1 COVID-19 (principal); N39.0 Urinary tract infection, site not specified; I48.91 Unspecified atrial fibrillation; N40.0 Benign prostatic hyperplasia without lower urinary tract symptoms; I11.0 Hypertensive heart disease with heart failure; I50.9 Heart failure, unspecified; E11.9 Type 2 diabetes mellitus without complications; Z79.4 Long term (current) use of insulin
CPT/HCPCS: 36415; 71045; 80053; 81001; 85025; 87040; 87077; 87086; 87088; 87186; 87635; 93005; 96365; 99284; C9803; J0696; U0003